=== PATIENT | female | born 1950 | race Caucasian/White ===

== ENCOUNTER 2016-11-14 12:38 | Day surgery (SDC) | payer MEDICARE, BC ==
[2016-11-03 10:07] LABS: BASOPHILS 0.3 %; BASOPHILS ABSOLUTE 0.02 10/3/uL (0.0-0.16); EOSINOPHILS 2.1 %; EOSINOPHILS ABSOLUTE 0.12 10/3/uL (0.0-0.53); HEMATOCRIT 37.9 % (36.0-48.0); HEMOGLOBIN 12.9 g/dL (12.0-16.0); IMMATURE GRANULOCYTES 0.2 %; IMMATURE GRANULOCYTES ABSOLUTE 0.01 10/3/uL (0.0-0.11); LYMPHOCYTES 22.2 %; LYMPHOCYTES ABSOLUTE 1.27 10/3/uL (0.67-4.30); MEAN CORPUSCULAR HEMOGLOB 33.9 pg (26.0-34.0); MEAN CORPUSCULAR VOLUME 99.5 fL (80-100); MEAN PLATELET VOLUME 8.8 fL (9.2-13.0); MONOCYTES 10.1 %; MONOCYTES ABSOLUTE 0.58 10/3/uL (0.21-1.20); NEUTROPHILS 65.1 %; NEUTROPHILS ABSOLUTE 3.72 10/3/uL (2.02-8.40); PLATELET COUNT 233 10/3/uL (150-400); RBC DISTRIBUTION WIDTH 12.5 % (12.0-16.0); RED CELL COUNT 3.81 10/6/uL (4.0-5.6); WHITE BLOOD CELLS 5.7 10/3/uL (4.5-10.5)
[2016-11-03 10:11] LABS: MANUAL DIFF NO %
[2016-11-03 10:14] LABS: INTERNATIONAL NORMAL RATI 0.9 UNITS (-); PROTIME (NOT ORD) 12.5 SEC (12.0-14.5)
[2016-11-03 10:26] LABS: PFA (COL/EPI) 77 SEC (72-180)
[2016-11-03 10:29] LABS: CHLORIDE, SERUM 103 MMOL/L (96-112); CO2 (CARBON DIOXIDE) 29 MMOL/L (24-34); CREATININE 0.91 MG/DL (0.55-1.02); GFR AFRICAN AMERICAN 76 ML/MIN (>=60); GFR NON AFRICAN AMERICAN 66 ML/MIN (>=60); GLUCOSE, SERUM 100 MG/DL (60-99); POTASSIUM, SERUM 4.3 MMOL/L (3.5-5.3); SODIUM, SERUM 141 MMOL/L (135-148)
[2016-11-03 10:30] LABS: BUN (BLOOD UREA NITROGEN) 19 MG/DL (6-23)
--- NOTE | ~2016-11-14 | OP ---
Record Of Operation [facility] [address] [place]. [address] NAME: DAVID CANTU : 50 STATUS : [facility]#: [id number] AGE: 66 ADM/REG DATE : 11/14/16 MR#: [id number] REPORT SERV DATE: 11/16/16 DICTATED BY: JEAN MOY DATE: 11/15/16 REPORT STATUS : Draft TRANSCRIBED BY: LAKESHA DATE: 11/15/16 DATE OF PROCEDURE: 11/14/2016 PREOPERATIVE DIAGNOSES: Surgical absence of the right breast, late effect of radiation, deformity of breast reconstruction, and history of breast cancer. POSTOPERATIVE DIAGNOSES: Surgical absence of the right breast, late effect of radiation, deformity of breast reconstruction, and history of breast cancer. PROCEDURES: Tissue emission technician exchange to definitive silicone implant and fat grafting for radiation and mastectomy-produced deformity. INDICATIONS AND FINDINGS OF THE PROCEDURE: This 66-year-old female was status post an implant-based immediate reconstruction initially. She then went through to her definitive reconstruction which was complicated by contracture, pain, and soft tissue envelope instability. She then went onto have a tissue expansion, latissimus dorsi reconstruction which has been stable since its construction. She is now appropriate for the above- described operative intervention. She is outside six months from the end of her radiation. DETAILS OF THE PROCEDURE: The patient was brought to the operating room. After adequate sedation was achieved, she was prepped and draped in the usual sterile fashion for the above described procedure. First, our attention was turned to the legs. Stab incisions were made, and then, approximately 250 mL of wetting solution was injected into the anterior and lateral thighs. Approximately, 250 mL of fatty aspirate was then removed and transferred to [place] apparatus. This was then treated and transferred into 10 mL and 3 mL syringes. Using a topographical map then placed before surgery, approximately 140 mL of fat was transferred into a subcutaneous site. While transferring the fat, it was discovered that her acellular dermal matrix from the initial surgery had become detached from the radiated skin envelope. With this identified, the fat grafting was held until the tissue emission technician was removed. A crescent of latissimus dorsi myocutaneous paddle was removed, and dissection was carried down to the underlying implant. The implant was ruptured and removed, and its zone of inadequately healed acellular dermal matrix was then sharply excised. Further fat grafting was carried out with the site open. Meticulous attention was then taken to a superior and superolateral capsulotomy. This extended from about 1 o'clock until 7 o'clock. Radial components were added to this. Once this was completed, then an inferior drain was placed. She was thoroughly irrigated with Hibiclens solution. Please note that gloves were changed between the fat harvest and implant placement and she was re-prepped. An NH implant was then placed into the site, manipulated into an appropriate position over the drain, and then, she was closed with a deep layer of 3-0 Vicryl for the muscular capsular layer and then multiple layers of Monocryl through to and intracuticular in the skin. [place] and injection site incisions were closed with 5-0 fast-absorbing gut. She was cleansed with peroxide. Dry dressings were placed. The drain was set to suction, and she was remanded to the recovery room in stable condition. All sponge and needle counts were correct. Record Of Operation [address] [address] NAME: DAVID CANTU : 50 STATUS : [facility] PAT#: [id number] AGE: 66 ADM/REG DATE : 11/14/16 MR#: [id number] REPORT SERV DATE: 11/16/16 DICTATED BY: JEAN MOY DATE: 11/15/16 REPORT STATUS : Draft TRANSCRIBED BY: LAKESHA DATE: 11/15/16 MING/LAKESHA Jean Moy M.D. / [id number] CC: Lakhwinder Kuhn M.D.
[~2016-11-14 12:38] MED LIST: ALEVE220 MG PO; ARIMIDEX1 PO; AT25 PO; CYMBALTA30 PO; K500 PO; LOP25 PO; MAXIMUM D3 PO; MOMUD PO; PERCOCET1 TA2 PO; PREMPRO1 TA1 PO; ZYRTEC ALLGY10 MG PO
== END 2016-11-14 20:39 | disposition home or self-care (01) ==
LOC: SDC 12:38
PROVIDERS: Surgery Surgery of the Hand
PROC: 0HRT0JZ Replacement of Right Breast with Synthetic Substitute, Open Approach (ICD-10-PCS; 2016-11-14)
PROC: 0HPT0NZ Removal of Tissue Expander from Right Breast, Open Approach (ICD-10-PCS; principal; 2016-11-14 13:45)
DX: Z45.811 Encounter for adjustment or removal of right breast implant (principal); N65.0 Deformity of reconstructed breast; I49.3 Ventricular premature depolarization; M79.7 Fibromyalgia; Z79.811 Long term (current) use of aromatase inhibitors; Z79.899 Other long term (current) drug therapy; Z85.3 Personal history of malignant neoplasm of breast; Z90.11 Acquired absence of right breast and nipple; Z88.1 Allergy status to other antibiotic agents
CPT/HCPCS: 80048; 85025; 85576; 85610; 85730; 93005; A9270-GY; C1769; C1789; J0690; J1885; J2250; J2405; J3010